=== PATIENT | male | born 1970 | race Caucasian/White ===

== ENCOUNTER → 2021-06-06 | Day surgery (SDC) | payer OTHER ==
[~2021-06-06] VITALS: Ht 177.8 cm; Wt 104.3 kg
[~2021-06-06] MED LIST: AFRIN15 M1; CENTRUM SILVER1 EAC5 PO; CRESTOR10 MG PO; CYMBALTA20 MG PO; FLONASE ALLER15.8 ML; HYDROCODON-ACE1 EAC2 PO; PRINIVIL10 MG PO; PROTONIX40 MG PO; VITAMIN B-121000 MC1 PO; VITAMIN D250 MC1 PO
== END | disposition home or self-care (01) ==
LOC: FAS 07:50
DX: Z12.11 Encounter for screening for malignant neoplasm of colon (principal); K63.5 Polyp of colon; K21.9 Gastro-esophageal reflux disease without esophagitis; I10 Essential (primary) hypertension; E78.00 Pure hypercholesterolemia, unspecified; Z79.899 Other long term (current) drug therapy
CPT/HCPCS: J2250; J2704; J7120